=== PATIENT | female | born 1985 | race African-American/Black ===

== ENCOUNTER 2016-08-29 02:35 | Emergency (ER) | payer SELFPAY ==
[~2016-08-29] VITALS: Ht 152.4 cm; Wt 80.7 kg
[2016-08-29] MEDS ORDERED: Famotidine 20 MG/ 2ML VIAL IVP ONE (03:30)
[2016-08-29 03:42] VITALS: BP 110/62
[2016-08-29 03:53] LABS: BASOPHILS % (AUTO) 0.6 % (0.0-2.0); EOSINOPHILS % (AUTO) 2.2 % (0.0-3.0); LYMPHOCYTES % (AUTO) 26.9 % (20.0-45.0); MEAN CORPUSCULAR HEMOGLOBIN 30.7 PG (27.0-31.0); MEAN CORPUSCULAR HGB CONC 32.3 G/DL (32.0-36.0); MEAN CORPUSCULAR VOLUME 95 FL (80-99); MEAN PLATELET VOLUME 7.7 FL (6.5-10.1); MONOCYTES % (AUTO) 4.8 % (1.0-10.0); NEUTROPHILS % (AUTO) 65.4 % (45.0-75.0); PLATELET COUNT 343 K/UL (150-450); RED BLOOD COUNT 4.12 M/UL (4.20-5.40); WHITE BLOOD COUNT 10.2 K/UL (4.8-10.8)
[2016-08-29 04:00] LABS: APPEARANCE,URINE CLEAR; KETONES,URINE NEGATIVE (NEGATIVE); LEUKOCYTE ESTERASE ,URINE NEGATIVE (NEGATIVE); NITRITE,URINE NEGATIVE (NEGATIVE); PH,URINE 6 (4.5-8.0); PROTEIN,URINE NEGATIVE (NEGATIVE); UROBILINOGEN,URINE NORMAL MG/DL (0.0-1.0)
[2016-08-29 04:07] LABS: BACTERIA,URINE FEW /HPF; SQUAMOUS EPITHELIAL CELL,UR FEW /LPF (NONE/OCC); WBC,URINE 0-2 /HPF (0 - 2)
[2016-08-29 04:12] LABS: ALANINE AMINOTRANSFERASE 15 U/L (3-33); ALBUMIN/GLOBULIN RATIO 1.1 (1.0-2.7); ANION GAP 14 (5-15); ASPARTATE AMINO TRANSFERASE 13 U/L (5-40); CALCIUM 9.7 mg/dL (8.6-10.2); CARBON DIOXIDE 25 mEQ/L (20-30); CHLORIDE 103 mEQ/L (98-107); CREATININE 0.6 mg/dL (0.5-0.9); GLOMERULAR FILTRATION RATE > 60 mL/min (>60); HEMOLYSIS 2; LIPASE 21 U/L (< 60); POTASSIUM 4.2 mEQ/L (3.4-4.9); SODIUM 142 mEQ/L (135-145); TOTAL PROTEIN 7.2 g/dL (6.6-8.7)
[2016-08-29] MEDS ORDERED: RANITIDINE HCL150 MG ORAL (04:57)
[2016-08-29] MEDS ORDERED: ZOFRAN ODT4 MG ORAL (04:57)
[2016-08-29] MEDS ORDERED: BENTYL10 MG ORAL (04:57)
[2016-08-29 05:14] VITALS: BP 116/78
--- NOTE | 2016-08-29 06:00 | Emergency Room Report ---
History of Present Illness General Chief Complaint: Abdominal Pain Source: Patient Present Illness HPI 30-year-old female presents ED complaining of abdominal pain with vomiting and diarrhea. States symptoms started this morning. Patient states she ate Hungarian food last night. Notes cramping abdominal pain with vomiting and diarrhea. Pain is 5/10, cramping, nonradiating. Denies fevers or chills. Denies sick contacts or recent travel. Denies recent antibiotic use. No aggravating or relieving factors. Denies any other associated symptoms Allergies: Coded Allergies: No Known Allergies (Unverified , 08/29/16) Patient History Past Medical History: none Past Surgical History: none Pertinent Family History: none Social History: Denies: alcohol use, drug use, smoking Last Menstrual Period: today Now: No Immunizations: UTD Reviewed Nursing Documentation: PMH: Agreed, PSxH: Agreed Nursing Documentation-PMH Past Medical History: No Stated History Review of Systems All Other Systems: negative except mentioned in HPI Physical Exam Vital Signs Date Time Temp Pulse Resp B/P Pulse Ox O2 Delivery O2 Flow Rate FiO2 08/29/16 02:57 98.2 83 18 120/75 98 Room Air Sp02 EP Interpretation: reviewed, normal General Appearance: no apparent distress, alert, GCS 15, non-toxic, obese Head: normocephalic, atraumatic Eyes: bilateral eye PERRL, bilateral eye normal inspection ENT: hearing grossly normal, normal pharynx, no angioedema, normal voice Neck: full range of motion, supple/symm/no masses Respiratory: chest non-tender, lungs clear, normal breath sounds, speaking full sentences Cardiovascular #1: regular rate, rhythm, no edema Cardiovascular #2: 2+ carotid (R), 2+ carotid (L), 2+ radial (R), 2+ radial (L) , 2+ dorsalis pedis (R), 2+ dorsalis pedis (L) Gastrointestinal: normal bowel sounds, soft, non-distended, no guarding, no rebound, tenderness - epigastric Rectal: deferred Genitourinary: normal inspection, no CVA tenderness Musculoskeletal: back normal, gait/station normal, normal range of motion, non- tender Neurologic: alert, oriented x3, responsive, motor strength/tone normal, sensory intact, speech normal Psychiatric: judgement/insight normal, memory normal, mood/affect normal, no suicidal/homicidal ideation Reflexes: 3+ bicep (R), 3+ bicep (L), 3+ tricep (R), 3+ tricep (L), 3+ knee (R) , 3+ knee (L) Skin: normal color, no rash, warm/dry, well hydrated Lymphatic: no adenopathy Medical Decision Making Diagnostic Impression: Primary Impression: Gastroenteritis ER Course Hospital Course 37-year-old M presents to ED with cramping abdominal pain with vomiting, diarrhea differential diagnosis: gastritis, SBO, cholecystits, gastroenteritis Clinical course Patient placed on stretcher. 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 After initial history and physical I ordered labs, IV fluids, Zofran and pepcid Labs - no leukocytosis, electrolytes ok, LFTs normal, UA unremarkable Upon reassessment, patient states pain has improved. findings consistent with gastroenteritis I feel this is a highly complex case requiring extensive working including EKG/ Rhythm strip, Xray/CT/US, Blood/urine lab work, repeat exams while in ED, and administration of strong opiates/narcotics for pain control, admission to hospital or close patient follow up. Diagnosis - gastroenteritis Stable and discharged to home with prescriptions for Zantac, zofran, bentyl. Followup with PMD. Return to ED if symptoms recur or worsen Labs Test 08/29/16 03:33 08/29/16 03:40 White Blood Count 10.2 K/UL (4.8-10.8) Red Blood Count 4.12 M/UL (4.20-5.40) Hemoglobin 12.6 G/DL (12.0-16.0) Hematocrit 39.1 % (37.0-47.0) Mean Corpuscular Volume 95 FL (80-99) Mean Corpuscular Hemoglobin 30.7 PG (27.0-31.0) Mean Corpuscular Hemoglobin Concent 32.3 G/DL (32.0-36.0) Red Cell Distribution Width 12.0 % (11.6-14.8) Platelet Count 343 K/UL (150-450) Mean Platelet Volume 7.7 FL (6.5-10.1) Neutrophils (%) (Auto) 65.4 % (45.0-75.0) Lymphocytes (%) (Auto) 26.9 % (20.0-45.0) Monocytes (%) (Auto) 4.8 % (1.0-10.0) Eosinophils (%) (Auto) 2.2 % (0.0-3.0) Basophils (%) (Auto) 0.6 % (0.0-2.0) Sodium Level 142 mEQ/L (135-145) Potassium Level 4.2 mEQ/L (3.4-4.9) Chloride Level 103 mEQ/L (98-107) Carbon Dioxide Level 25 mEQ/L (20-30) Anion Gap 14 (5-15) Blood Urea Nitrogen 15 mg/dL (7-23) Creatinine 0.6 mg/dL (0.5-0.9) Estimat Glomerular Filtration Rate > 60 mL/min (>60) Glucose Level 111 mg/dL (74-106) Calcium Level 9.7 mg/dL (8.6-10.2) Total Bilirubin < 0.2 mg/dL (0.0-1.2) Aspartate Amino Transf (AST/SGOT) 13 U/L (5-40) Alanine Aminotransferase (ALT/SGPT) 15 U/L (3-33) Alkaline Phosphatase 91 U/L (35-104) Total Protein 7.2 g/dL (6.6-8.7) Albumin 3.9 g/dL (3.5-5.2) Globulin 3.3 g/dL Albumin/Globulin Ratio 1.1 (1.0-2.7) Lipase 21 U/L (< 60) Urine Color Pale yellow Urine Appearance Clear Urine pH 6 (4.5-8.0) Urine Specific Hartman 1.020 (1.005-1.035) Urine Protein Negative (NEGATIVE) Urine Glucose (UA) Negative (NEGATIVE) Urine Ketones Negative (NEGATIVE) Urine Occult Blood 2+ (NEGATIVE) Urine Nitrite Negative (NEGATIVE) Urine Bilirubin Negative (NEGATIVE) Urine Urobilinogen Normal MG/DL (0.0-1.0) Urine Leukocyte Esterase Negative (NEGATIVE) Urine RBC 5-10 /HPF (0 - 2) Urine WBC 0-2 /HPF (0 - 2) Urine Squamous Epithelial Cells Few /LPF (NONE/OCC) Urine Bacteria Few /HPF (NONE) Urine HCG, Qualitative Negative Last Vital Signs Date Time Temp Pulse Resp B/P Pulse Ox O2 Delivery O2 Flow Rate FiO2 08/29/16 05:14 84 18 116/78 98 Room Air 08/29/16 03:42 98.2 Status: improved Disposition: HOME, SELF-CARE Condition: Stable Scripts Ranitidine Hcl* (ZANTAC*) 150 Mg Tablet 150 MG ORAL TWICE A DAY, #30 TAB Prov: TOMI NELSON M.D. 08/29/16 Dicyclomine Hcl* (BENTYL*) 10 Mg Capsule 10 MG ORAL FOUR TIMES A DAY, #20 CAP Prov: TOMI NELSON M.D. 08/29/16 Ondansetron Odt* (ZOFRAN ODT*) 4 Mg Tab.rapdis 4 MG ORAL Q6H Y for Nausea & Vomiting, #30 TAB 0 Refills Prov: TOMI NELSON M.D. 08/29/16 Patient Instructions: Viral Gastroenteritis, Adult, [id number] TOMI NELSON M.D. Aug 29, 2016 06:00
== END 2016-08-29 05:19 | disposition home or self-care (01) ==
LOC: EMR 03:10
DX: K52.9 Noninfective gastroenteritis and colitis, unspecified (principal)
CPT/HCPCS: 36415; 80053; 81003; 81025; 83690; 85025; 96374; 96375; 99284; J2405; S0028

== ENCOUNTER 2017-05-07 08:58 | Emergency (ER) | payer OTHER ==
[~2017-05-07] VITALS: Ht 152.4 cm; Wt 81.2 kg
[~2017-05-07 08:58] MED LIST: BENTYL10 MG ORAL; RANITIDINE HCL150 MG ORAL; ZOFRAN ODT4 MG ORAL
[2017-05-07] MEDS ORDERED: ACETAMINOPHEN-1 EAC1 PO (09:21)
[2017-05-07 09:23] VITALS: BP 132/84
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
[2017-05-07] MEDS: Ketorolac 60mg Inj IM ONE (09:45)
[2017-05-07] MEDS: Methocarbamol 750mg tab ORAL ONE (09:45)
[2017-05-07] MEDS ORDERED: ROBAXIN-750750 MG PO (10:14)
[2017-05-07] MEDS ORDERED: IBUPROFEN600 MG ORAL (10:14)
[2017-05-07 10:25] VITALS: BP 124/79
[2017-05-07 10:29] VITALS: BP 124/79
== END 2017-05-07 10:29 | disposition home or self-care (01) ==
LOC: EMR 09:46
DX: S16.1XXA Strain of muscle, fascia and tendon at neck level, initial encounter (principal); S39.012A Strain of muscle, fascia and tendon of lower back, initial encounter; V43.42XA Person boarding or alighting a car injured in collision with other type car, initial encounter; Y92.410 Unspecified street and highway as the place of occurrence of the external cause
CPT/HCPCS: 96372; 99283

== ENCOUNTER 2018-01-14 12:23 | Emergency (ER) | payer OTHER ==
[~2018-01-14] VITALS: Ht 152.4 cm; Wt 79.4 kg
[~2018-01-14 12:23] MED LIST changes: +ACETAMINOPHEN-1 EAC1 PO; +IBUPROFEN600 MG ORAL; +ROBAXIN-750750 MG PO
[2018-01-14] MEDS ORDERED: NKM (12:37)
[2018-01-14 12:48] VITALS: BP 122/68
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
[2018-01-14] MEDS ORDERED: ROBAXIN-750750 MG PO (13:38)
[2018-01-14] MEDS ORDERED: IBUPROFEN600 MG ORAL (13:38)
[2018-01-14] MEDS ORDERED: LIDODERM700 M1 TOPIC (13:38)
[2018-01-14 13:49] VITALS: BP 118/75
== END 2018-01-14 14:00 | disposition home or self-care (01) ==
LOC: EMR 13:55
DX: S16.1XXA Strain of muscle, fascia and tendon at neck level, initial encounter (principal); V43.52XA Car driver injured in collision with other type car in traffic accident, initial encounter; Y92.488 Other paved roadways as the place of occurrence of the external cause
CPT/HCPCS: 99282

== ENCOUNTER 2018-04-02 11:12 | Emergency (ER) | payer OTHER ==
[~2018-04-02] VITALS: Ht 152.4 cm; Wt 79.4 kg
[~2018-04-02 11:12] MED LIST changes: +LIDODERM700 M1 TOPIC; +NKM
[2018-04-02 11:35] VITALS: BP 113/76
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
[2018-04-02] MEDS ORDERED: TYLENOL EXTRA500 MG ORAL (11:55)
[2018-04-02] MEDS ORDERED: LIDODERM700 M1 TOPIC (11:55)
[2018-04-02] MEDS ORDERED: ROBAXIN-750750 MG PO (11:55)
[2018-04-02] MEDS ORDERED: Methocarbamol 750mg tab ORAL ONE (12:00)
[2018-04-02 12:02] VITALS: BP 113/76
--- NOTE | 2018-04-02 12:02 | NUR ---
ER Nurse Note: A/OX4. PT IS CLEARED BY DR.K. CACERES INSTRUCTION AND PRESCRIPTIONS GIVEN, PT VERBALIZED UNDERSTSANDING. IV/ID WRISTBAND REMOVED. ALL BELONGINGS TAKEN BY PT. DENIES ANY PAIN AT THIS TIME. PT AMBULATED OUT OF ER WITH STEADY GAIT.
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
== END 2018-04-02 12:02 | disposition home or self-care (01) ==
LOC: EMR 11:50
DX: S39.012A Strain of muscle, fascia and tendon of lower back, initial encounter (principal); V49.50XA Passenger injured in collision with unspecified motor vehicles in traffic accident, initial encounter; Y92.410 Unspecified street and highway as the place of occurrence of the external cause
CPT/HCPCS: 99282

== ENCOUNTER 2018-05-22 13:22 | Emergency (ER) | payer OTHER ==
[~2018-05-22] VITALS: Ht 149.9 cm; Wt 79.4 kg
[~2018-05-22 13:22] MED LIST changes: +TYLENOL EXTRA500 MG ORAL
--- NOTE | 2018-05-22 13:39 | NUR ---
ED Nurse Note: Pt came in due to abd. pain with N/V/D x 2 days. Denies blood in the stool. Pt still able to tolerate oral intake. Pt is AAO x4, ambulatory with non labored breathing.
[2018-05-22] MEDS ORDERED: Dicyclomine HCl 10mg/5ml oral soln ORAL ONE (13:45)
[2018-05-22] MEDS ORDERED: Lidocaine 2% Visc 15ml soln ORAL ONE (13:45)
[2018-05-22] MEDS ORDERED: Mylanta II UD 30ml ORAL ONE (13:45)
--- NOTE | 2018-05-22 13:57 | Emergency Room Report ---
History of Present Illness General Chief Complaint: Abdominal Pain Source: Patient, Medical Record Present Illness HPI 32-year-old female patient presents the ER complaining of abdominal pain for the past 2 days. Reports symptoms began after waking up from a nap. Reports vomiting and diarrhea during this time. Reports single episode of vomiting occurred yesterday, states his been able tolerate p.o. fluids since that time. Reports decreased appetite however been able to eat foods. Denies blood in vomit or stool, denies coffee-ground emesis. Denies contacts with similar symptoms. Denies radiation of abdominal pain. Denies any new foods in diet. Denies recent travel outside the country. Denies dysuria, hematuria, vaginal discharge. Denies alcohol or drug use. Reports last menstrual period was a few days ago, states was normal for her. Denies concern for . Reports is been a sexual monogamous relationship with one partner. Denies concern for STI. Denies fever, chest pain, shortness of breath. Denies history of heart disease. Reports history of acid reflux. Allergies: Coded Allergies: No Known Allergies (Unverified , 08/29/16) Patient History Past Medical History: see triage record Last Menstrual Period: 05/15/2018 Now: No : 2 Para: 2 Reviewed Nursing Documentation: PMH: Agreed; PSxH: Agreed Nursing Documentation-PMH Hx Neurological Problems: Yes - jaw pain/dental pain and Paralyzed tongue Review of Systems All Other Systems: negative except mentioned in HPI Physical Exam Vital Signs Date Time Temp Pulse Resp B/P (MAP) Pulse Ox O2 Delivery O2 Flow Rate FiO2 05/22/18 13:29 98.4 85 18 124/86 98 Room Air Sp02 EP Interpretation: reviewed, normal General Appearance: well appearing, no apparent distress, alert, GCS 15, non- toxic Head: normocephalic, atraumatic ENT: hearing grossly normal, normal pharynx, no angioedema, normal voice, uvula midline, moist mucus membranes Neck: full range of motion, no bony tend Respiratory: lungs clear, normal breath sounds, no rhonchi, no respiratory distress, no accessory muscle use, no wheezing, speaking full sentences Cardiovascular #1: regular rate, rhythm, no edema, normal capillary refill Gastrointestinal: non tender, soft, no mass, non-distended, no guarding, no rebound, other - Negative De Anda, negative obturator, negative Rovsing Genitourinary: no CVA tenderness Musculoskeletal: back normal, digits/nails normal, gait/station normal, normal range of motion, non-tender Neurologic: alert, oriented x3, responsive, motor strength/tone normal, sensory intact Skin: no rash, well hydrated, normal turgor Medical Decision Making PA Attestation Dr. Ordoñez is my supervising Physician whom patient management has been discussed with. Diagnostic Impression: Primary Impression: Abdominal pain, vomiting, and diarrhea ER Course Pt. presents to the ED c/o abdominal pain and vomiting. Ddx considered but are not limited to UTI, GERD, acid reflux, viral syndrome, pancreatitis, diverticulitis, constipation, gastritis, colitis, dehydration. No abdominal tenderness palpation, negative Rovsing, negative obturator, negative heel strike, low suspicion for appendicitis. Afebrile, negative De Anda, no jaundice, low suspicion for cholecystitis. Begin abdominal pain workup. Provided patient with pain medication. Vital signs: are WNL, pt. is afebrile ORDERS: CBC, CMP, Lipase, UA, CT abdomen pelvis, Zofran, Pepcid and medication. ER COURSE: CBC and CMP no elevation WBCs or LFTs, no electrolyte abnormalities Lipase within normal limits UA unremarkable, denies dysuria hematuria, low suspicion for UTI Urine negative Influenza swab negative. Discuss results with patient No abdominal tenderness palpation, does not require abdominal imaging at this time. Reports abdominal pain resolved while in the ER. Patient resting comfortably no acute distress, states pain symptoms have improved while in the ER. No clinical signs of dehydration, able to tolerate p.o. fluids. Patient reports relief of pain symptoms with medication. Follow-up with GI specialist. ER precautions given. DISCHARGE: At this time pt. is stable for d/c to home. Patient resting comfortably, in no acute distress, nontoxic appearing, talking without difficulty. Rx provided to patient. Patient to take medications as instructed Will provide with patient care instructions and any necessary prescriptions. Care plan and follow-up instructions provided. Patient instructed to follow-up with primary care provider in 3 - 5 days. Patient questions asked and answered. Patient reports understanding and agreement to treatment plan. ER precautions given. Patient instructed to return to ER immediately for any new or worsening of symptoms including but not limited to increasing SOB, persistent fever, worsening of pain symptoms, intractable vomiting, blood in stool, urine, and/or emesis. - Please note that this Emergency Department Report was dictated using [employer] analyst technology software, occasionally this can lead to erroneous entry secondary to interpretation by the dictation equipment. Labs Test 05/22/18 13:40 05/22/18 14:00 Urine Color Yellow Urine Appearance Clear Urine pH 5 (4.5-8.0) Urine Specific [place] 1.020 (1.005-1.035) Urine Protein 1+ (NEGATIVE) Urine Glucose (UA) Negative (NEGATIVE) Urine Ketones Negative (NEGATIVE) Urine Blood 1+ (NEGATIVE) Urine Nitrite Negative (NEGATIVE) Urine Bilirubin Negative (NEGATIVE) Urine Urobilinogen 1 MG/DL (0.0-1.0) Urine Leukocyte Esterase 1+ (NEGATIVE) Urine RBC 0-2 /HPF (0 - 2) Urine WBC 2-4 /HPF (0 - 2) Urine Squamous Epithelial Cells Few /LPF (NONE/OCC) Urine Bacteria Occasional /HPF (NONE) Urine Mucus Moderate /LPF (NONE/OCC) Urine HCG, Qualitative Negative (NEGATIVE) White Blood Count 10.0 K/UL (4.8-10.8) Red Blood Count 4.19 M/UL (4.20-5.40) Hemoglobin 12.9 G/DL (12.0-16.0) Hematocrit 37.1 % (37.0-47.0) Mean Corpuscular Volume 88 FL (80-99) Mean Corpuscular Hemoglobin 30.8 PG (27.0-31.0) Mean Corpuscular Hemoglobin Concent 34.9 G/DL (32.0-36.0) Red Cell Distribution Width 11.9 % (11.6-14.8) Platelet Count 296 K/UL (150-450) Mean Platelet Volume 7.2 FL (6.5-10.1) Neutrophils (%) (Auto) 59.7 % (45.0-75.0) Lymphocytes (%) (Auto) 33.5 % (20.0-45.0) Monocytes (%) (Auto) 4.8 % (1.0-10.0) Eosinophils (%) (Auto) 1.4 % (0.0-3.0) Basophils (%) (Auto) 0.6 % (0.0-2.0) Sodium Level 139 MMOL/L (136-145) Potassium Level 3.7 MMOL/L (3.5-5.1) Chloride Level 104 MMOL/L (98-107) Carbon Dioxide Level 27 MMOL/L (21-32) Anion Gap 8 mmol/L (5-15) Blood Urea Nitrogen 16 mg/dL (7-18) Creatinine 0.7 MG/DL (0.55-1.30) Estimat Glomerular Filtration Rate > 60 mL/min (>60) Glucose Level 84 MG/DL (74-106) Calcium Level 8.8 MG/DL (8.5-10.1) Total Bilirubin 0.2 MG/DL (0.2-1.0) Aspartate Amino Transf (AST/SGOT) 14 U/L (15-37) Alanine Aminotransferase (ALT/SGPT) 29 U/L (12-78) Alkaline Phosphatase 90 U/L (46-116) Total Protein 7.4 G/DL (6.4-8.2) Albumin 3.8 G/DL (3.4-5.0) Globulin 3.6 g/dL Albumin/Globulin Ratio 1.1 (1.0-2.7) Lipase 80 U/L (73-393) Last Vital Signs Date Time Temp Pulse Resp B/P (MAP) Pulse Ox O2 Delivery O2 Flow Rate FiO2 05/22/18 13:39 85 18 Room Air 05/22/18 13:29 98.4 124/86 98 Status: improved Disposition: HOME, SELF-CARE Condition: Stable Scripts Famotidine (PEPCID AC) 20 Mg Tablet 20 MG PO DAILY, #30 TAB Prov: Avi Rodriguez 05/22/18 Acetaminophen* (TYLENOL EXTRA STRENGTH*) 500 Mg Tablet 500 MG ORAL Q8H PRN for Prn Headache/Temp > 101, #30 TAB 0 Refills Prov: Avi Rodriguez 05/22/18 Patient Instructions: Abdominal Pain, Adult, Diarrhea, Adult, [id number], Food Choices for Gastroesophageal Reflux Disease, Adult, Food Choices to Help Relieve Diarrhea, Adult, Nausea and Vomiting, Adult, [id number] Additional Instructions: Followup with primary care provider in 3 -5 days. Avoid spicy foods, avoid dairy foods. BRAT diet: bananas, rice, apple sauce, toast. Consider Immodium for diarrhea and Tylenol for pain symptoms. Take medications as directed. Patient questions asked and answered. ER precautions given, patient instructed to return to ER immediately for any new or worsening of symptoms. Avi Rodriguez May 22, 2018 13:57
[2018-05-22 14:04] VITALS: BP 109/69
[2018-05-22 14:34] LABS: APPEARANCE,URINE CLEAR; BILIRUBIN, URINE NEGATIVE (NEGATIVE); GLUCOSE, URINE (UA) NEGATIVE (NEGATIVE); KETONES,URINE NEGATIVE (NEGATIVE); NITRITE,URINE NEGATIVE (NEGATIVE); PH,URINE 5 (4.5-8.0); PROTEIN,URINE 1+ (NEGATIVE)
[2018-05-22 14:39] LABS: BASOPHILS % (AUTO) 0.6 % (0.0-2.0); EOSINOPHILS % (AUTO) 1.4 % (0.0-3.0); HEMATOCRIT 37.1 % (37.0-47.0); HEMOGLOBIN 12.9 G/DL (12.0-16.0); LYMPHOCYTES % (AUTO) 33.5 % (20.0-45.0); MEAN CORPUSCULAR VOLUME 88 FL (80-99); MONOCYTES % (AUTO) 4.8 % (1.0-10.0); NEUTROPHILS % (AUTO) 59.7 % (45.0-75.0); PLATELET COUNT 296 K/UL (150-450); RED BLOOD COUNT 4.19 M/UL (4.20-5.40); RED CELL DISTRIBUTION WIDTH 11.9 % (11.6-14.8)
[2018-05-22 14:39] LABS: COLOR,URINE YELLOW; UROBILINOGEN,URINE 1 MG/DL (0.0-1.0)
[2018-05-22 14:40] LABS: LEUKOCYTE ESTERASE ,URINE 1+ (NEGATIVE)
[2018-05-22 14:48] LABS: ANION GAP 8 mmol/L (5-15); BLOOD UREA NITROGEN 16 mg/dL (7-18); CALCIUM 8.8 MG/DL (8.5-10.1); CARBON DIOXIDE 27 MMOL/L (21-32); CHLORIDE 104 MMOL/L (98-107); CREATININE 0.7 MG/DL (0.55-1.30); POTASSIUM 3.7 MMOL/L (3.5-5.1); SODIUM 139 MMOL/L (136-145)
[2018-05-22 14:53] LABS: ALANINE AMINOTRANSFERASE 29 U/L (12-78); ALBUMIN 3.8 G/DL (3.4-5.0); ALBUMIN/GLOBULIN RATIO 1.1 (1.0-2.7); ALKALINE PHOSPHATASE 90 U/L (46-116); ASPARTATE AMINO TRANSFERASE 14 U/L (15-37); BILIRUBIN,TOTAL 0.2 MG/DL (0.2-1.0)
[2018-05-22] MEDS ORDERED: TYLENOL EXTRA500 MG ORAL (15:10)
[2018-05-22] MEDS ORDERED: PEPCID AC20 M2 PO (15:10)
[2018-05-22 15:18] VITALS: BP 110/65
--- NOTE | 2018-05-22 15:18 | NUR ---
ER DISCHARGE NOTE: Patient is cleared to be discharged per [facility], pt is aox4, on room air, with stable vital signs. pt was given dc and prescription instructions, pt was able to verbalize understanding, pt id band and iv site removed without complications. pt is able to ambulate with steady gait. pt took all belongings.
== END 2018-05-22 15:18 | disposition home or self-care (01) ==
LOC: EMR 13:40
DX: R10.9 Unspecified abdominal pain (principal); R11.10 Vomiting, unspecified; R19.7 Diarrhea, unspecified
CPT/HCPCS: 36415; 80053; 81003; 81025; 83690; 85025; 86710; 96361; 96374; 96375; 99284; J2405; S0028

== ENCOUNTER 2018-07-21 10:41 | Emergency (ER) | payer OTHER ==
[~2018-07-21] VITALS: Ht 154.9 cm; Wt 81.2 kg
[~2018-07-21 10:41] MED LIST changes: +PEPCID AC20 M2 PO
[2018-07-21 10:44] VITALS: BP 120/72
--- NOTE | 2018-07-21 10:45 | NUR ---
ED Nurse Note: Pt. aaox4. ambualtory. pt. reported having sharp pain in her heart this morning for afew seconds with numbness in left hand after that, now 5/10 left shoulder pain
[2018-07-21] MEDS ORDERED: IBUPROFEN600 MG ORAL (11:58)
[2018-07-21 12:06] VITALS: BP 128/68
--- NOTE | 2018-07-21 12:07 | NUR ---
ER DISCHARGE NOTE: Patient is cleared to be discharged per ERMD, pt is aox4, on room air, with stable vital signs. pt was given dc and prescription instructions, pt was able to verbalize understanding, pt id band removed.pt is able to ambulate with steady gait. pt took all belongings.
--- NOTE | 2018-07-21 16:51 | Emergency Room Report ---
History of Present Illness General Chief Complaint: Chest Pain Source: Patient Present Illness HPI Patient is a 32-year-old female presented after increased chest discomfort. Patient reports of increased chain pain to the left side of her chest. This is worse with movement. She denies prior cardiac conditions. She is not currently taking any medications for pain. She reports having some pain to the left arm as well. Patient states this began after becoming upset with her daughter. She denies any fever. She denies any change with deep breath. She denies any recent leg pain or swelling. She does not take control pills. Allergies: Coded Allergies: No Known Allergies (Unverified , 08/29/16) Patient History Past Medical History: see triage record Last Menstrual Period: 07/05/18 Reviewed Nursing Documentation: PMH: Agreed; PSxH: Agreed Nursing Documentation-PM Past Medical History: No Stated History Hx Neurological Problems: Yes - jaw pain/dental pain and Paralyzed tongue Review of Systems All Other Systems: negative except mentioned in HPI Physical Exam Vital Signs Date Time Temp Pulse Resp B/P (MAP) Pulse Ox O2 Delivery O2 Flow Rate FiO2 07/21/18 10:44 98.2 88 17 120/72 (88) 99 Room Air Sp02 EP Interpretation: reviewed, normal General Appearance: normal inspection, well appearing, no apparent distress, alert, GCS 15, non-toxic Head: normocephalic, atraumatic ENT: normal ENT inspection, hearing grossly normal, normal voice Neck: normal inspection, full range of motion, supple, no bony tend Respiratory: normal inspection, lungs clear, normal breath sounds, no respiratory distress, no retraction, no wheezing, other - Mild left-sided chest wall tenderness. Cardiovascular #1: regular rate, rhythm, no edema Gastrointestinal: normal inspection, normal bowel sounds, non tender, soft, no guarding, no hernia Genitourinary: no CVA tenderness Musculoskeletal: normal inspection, back normal, normal range of motion Neurologic: normal inspection, alert, responsive, speech normal Psychiatric: normal inspection, judgement/insight normal, mood/affect normal Skin: normal inspection, normal color, no rash Medical Decision Making Diagnostic Impression: Primary Impression: Atypical chest pain ER Course Patient presented for chest pain. Differential diagnosis include was not limited to chest wall pain, anxiety, myocardial infarction, pneumothorax among others. Patient has a benign exam and does not appear to require any further imaging or laboratory testing at this time. Patient does not appear to have any prior history concerning for acute ACS. EKG interpreted by me showed normal sinus rhythm without acute ST or T wave changes. Patient was noted to have benign exam and appears to have some evidence of chest wall pain. Patient will be discharged home and advised to follow-up with primary care physician for recheck. She is advised to return if pain worsens or occurred. Last Vital Signs Date Time Temp Pulse Resp B/P (MAP) Pulse Ox O2 Delivery O2 Flow Rate FiO2 07/21/18 12:06 98.6 78 19 128/68 100 Room Air Status: improved Disposition: HOME, SELF-CARE Condition: Stable Scripts Ibuprofen* (MOTRIN*) 600 Mg Tablet 600 MG ORAL Q8H PRN for For Pain, #30 TAB 0 Refills Prov: Onesimo Ordoñez MD 07/21/18 Patient Instructions: Nonspecific Chest Pain Onesimo Ordoñez MD Jul 21, 2018 16:50
== END 2018-07-21 12:08 | disposition home or self-care (01) ==
LOC: EMR 11:05
DX: R07.9 Chest pain, unspecified (principal)
CPT/HCPCS: 99283

== ENCOUNTER 2018-11-12 19:13 | Emergency (ER) | payer OTHER ==
[~2018-11-12] VITALS: Ht 152.4 cm; Wt 80.7 kg
[2018-11-12 19:25] VITALS: BP 117/76
--- NOTE | 2018-11-12 19:25 | NUR ---
ED Nurse Note: Patient walked in to ER due to bodyache, dry cough, nasal congestion, low back pain and hives x 1 day. Has medical hx of jaw pain/dental pain and Paralyzed tongue. alert and oriented, verbally responsive. No SOB. Breathing even and unlabored. Afebrile. VSS.
--- NOTE | 2018-11-12 20:05 | NUR ---
ED Nurse Note: Influenza A& B swab sent to lab.
--- NOTE | 2018-11-12 20:45 | Emergency Room Report ---
History of Present Illness General Chief Complaint: Flu Like Symptoms Source: Patient Present Illness HPI 33-year-old female with no significant past medical history here complaining of 5 days of fluid drainage and slight pain from left ear as well as 1 day of body ache and a dry cough and congestion. Patient reports that 2 nights ago she started breaking to hives both inner thighs and both armpits that night with a went away in the morning. Patient medication. Denies any unusual food intake or coming in contact with something that she is allergic to. Denies anaphylaxis. Patient reports that one day ago she started having body aches as well as a dry cough with mild congestion. Denies fever and chills and sore throat. Denies any exposure to water or elevation. Reports that she was trying to clean her left ear with a Q-tip a week ago she got the wax out however started having pus filled drainage few days later. Denies hearing loss , vertigo, dizziness, tinnitus. Has not taken [id number] medication for symptom relief. Denies abdominal pain, nausea vomiting. Reports that she has a small baby at home with similar symptoms minus the hives Allergies: Coded Allergies: No Known Allergies (Unverified , 08/29/16) Patient History Past Medical History: see triage record Past Surgical History: unable to obtain Pertinent Family History: none Last Menstrual Period: 11/10/18 Now: No Immunizations: UTD Reviewed Nursing Documentation: PMH: Agreed; PSxH: Agreed Nursing Documentation-PM Past Medical History: No Stated History Hx Neurological Problems: Yes - jaw pain/dental pain and Paralyzed tongue Review of Systems All Other Systems: negative except mentioned in HPI Physical Exam Vital Signs Date Time Temp Pulse Resp B/P (MAP) Pulse Ox O2 Delivery O2 Flow Rate FiO2 11/12/18 19:21 99.7 88 16 117/76 (90) 97 Room Air Sp02 EP Interpretation: reviewed, normal General Appearance: no apparent distress, alert, GCS 15, non-toxic Head: normocephalic, atraumatic Eyes: bilateral eye normal inspection, bilateral eye PERRL ENT: hearing grossly normal, normal pharynx, no angioedema, normal voice, uvula midline, moist mucus membranes, other - Pus noted in left ear, tragus and pinna are nontender to palpation, no mastoid tenderness noted, I was unable to visualize tympanic membrane due to pus in the ear Neck: full range of motion, supple, thyroid normal, no meningismus, supple/symm /no masses Respiratory: chest non-tender, lungs clear, normal breath sounds, no rhonchi, no wheezing, speaking full sentences Cardiovascular #1: regular rate, rhythm, no edema, no murmur Gastrointestinal: normal bowel sounds, non tender, soft, non-distended, no guarding, no rebound Musculoskeletal: back normal, gait/station normal, normal range of motion, non- tender Neurologic: alert, oriented x3, responsive, motor strength/tone normal, sensory intact, speech normal Psychiatric: judgement/insight normal, memory normal, mood/affect normal, no suicidal/homicidal ideation Skin: no rash Lymphatic: no adenopathy Medical Decision Making PA Attestation All my diagnosis and treatment plans were reviewed ad discussed with my supervising physician Dr. Ordoñez Diagnostic Impression: Primary Impression: Left otitis media Additional Impressions: URI (upper respiratory infection) Allergic contact urticaria ER Course 33-year-old female with no significant past medical history here complaining of 5 days of fluid drainage and slight pain from left ear as well as 1 day of body ache and a dry cough and congestion. Patient reports that 2 nights ago she started breaking to hives both inner thighs and both armpits that night with a went away in the morning. Patient medication. Denies any unusual food intake or coming in contact with something that she is allergic to. Denies anaphylaxis. Patient reports that one day ago she started having body aches as well as a dry cough with mild congestion. Denies fever and chills and sore throat. Denies any exposure to water or elevation. Reports that she was trying to clean her left ear with a Q-tip a week ago she got the wax out however started having pus filled drainage few days later. Denies hearing loss , vertigo, dizziness, tinnitus. Has not taken [id number] medication for symptom relief. Denies abdominal pain, nausea vomiting. Reports that she has a small baby at home with similar symptoms minus the hives Ddx considered but are not limited to: strep pharyngitis, URI, tonsillitis, peritonsillar abscess, influneza, otitis media, otitis externa, allergic urticaria , scabies, lice Vital signs: are WNL, pt. is afebrile H&PE are most consistent with: allergic urticaria, left otitis media, URI ORDERS: Rapid influenza test, amoxicillin, Phenergan, prednisone ED INTERVENTIONS: Ibuprofen DISCHARGE: At this time pt. is stable for d/c to home. Will provide printed patient care instructions, and any necessary prescriptions. Care plan and follow up instructions have been discussed with the patient prior to discharge. I advised the patient to follow-up with her primary care provider take medication as directed if worsening symptoms return to the emergency room Last Vital Signs Date Time Temp Pulse Resp B/P (MAP) Pulse Ox O2 Delivery O2 Flow Rate FiO2 11/12/18 19:25 88 16 Room Air 11/12/18 19:25 99.7 117/76 97 Disposition: HOME, SELF-CARE Condition: Stable Scripts Prednisone* (PREDNISONE*) 10 Mg Tablet 10 MG ORAL BID for 5 Days, #10 TAB 0 Refills Prov: Skip Montoya 11/12/18 Promethazine Hcl (PROMETHAZINE HCL*) 6.25 Mg/5 Ml Syrup 5 ML ORAL Q6H, #120 ML 0 Refills Prov: Skip Montoya 11/12/18 Amoxicillin* (AMOXIL*) 500 Mg Capsule 500 MG ORAL EVERY 8 HOURS for 10 Days, #30 CAP Prov: Skip Montoya 11/12/18 Referrals: [facility],REFERRING (PCP) Patient Instructions: Allergies, [id number], Otitis Media, Adult, Easy-to- Read, Upper Respiratory Infection, Adult, [id number] Additional Instructions: Take medication as directed follow-up with your primary care provider worsening symptoms return to the emergency room Skip Montoya Nov 12, 2018 20:45
[2018-11-12] MEDS ORDERED: PROMETHAZI6.25 MG/1 ORAL (20:47)
[2018-11-12] MEDS ORDERED: PREDNISONE10 MG ORAL (20:47)
[2018-11-12] MEDS ORDERED: AMOXICILLIN500 MG ORAL (20:47)
[2018-11-12 20:55] VITALS: BP 117/76
--- NOTE | 2018-11-12 20:55 | NUR ---
ED Nurse Note: Pt cleared by ERMD for discharge. DC instructions/prescription was given and explained to pt and verbalized understanding of teachings. All medical deviecs such as ID band removed. Pt is AAO x4, ambulatory and left with all personal belongings.
== END 2018-11-12 20:55 | disposition home or self-care (01) ==
LOC: EMR 19:50
DX: H66.92 Otitis media, unspecified, left ear (principal); J06.9 Acute upper respiratory infection, unspecified; L50.0 Allergic urticaria
CPT/HCPCS: 86710; Z7502; 99283